=== PATIENT | male | born 1990 | race Caucasian/White ===

== ENCOUNTER 2024-11-16 13:19 | Emergency (ER) | payer OTHER, BC ==
[~2024-11-16] VITALS: Ht 180.3 cm; Wt 88.9 kg
[2024-11-16 16:32] VITALS: BP 140/83
== END 2024-11-16 16:30 | disposition home or self-care (01) ==
LOC: ED 13:19
DX: S81.812A Laceration without foreign body, left lower leg, initial encounter (principal); W01.0XXA Fall on same level from slipping, tripping and stumbling without subsequent striking against object, initial encounter
CPT/HCPCS: 12002; 99282